=== PATIENT | male | born 1960 | race Caucasian/White ===

== ENCOUNTER 2017-09-09 19:47 | Emergency (ER) | payer OTHER ==
[~2017-09-09] VITALS: Ht 167.6 cm; Wt 86.2 kg
== END 2017-09-09 21:11 | disposition home or self-care (01) ==
LOC: ER 19:47
DX: S40.011A Contusion of right shoulder, initial encounter (principal); W22.09XA Striking against other stationary object, initial encounter; Y99.0 Civilian activity done for income or pay
CPT/HCPCS: 99282